=== PATIENT | female | born 1950 | race Two or more races ===

== ENCOUNTER 2023-06-03 07:53 | Outpatient (CLI) | payer OTHER | END 2023-06-03 07:54 | disposition home or self-care (01) | LOC: NUCLEAR 07:53 | PROVIDERS: ATTEND Internal Medicine Hematology & Oncology | DX: C50.811 Malignant neoplasm of overlapping sites of right female breast (principal) | CPT/HCPCS: 78815; A9552 ==

== ENCOUNTER 2023-12-15 11:43 | Inpatient (IN) | payer OTHER ==
[2023-12-15 12:58] LABS: HEMATOCRIT 35.2 % (36.0-45.00); HEMOGLOBIN 11.6 g/dL (12.0-15.00); MEAN CELL VOLUME 85.8 fL (80.00-100.00); MEAN CORPUSCULAR HEMOGLOBIN 28.4 pg (27.00-32.0); MEAN CORPUSCULAR HGB CONC 33.1 g/dl (32.0-36.0); PLATELET COUNT 335 K/uL (150-450)
[2023-12-15 13:06] LABS: ERYTHROCYTE SEDIMENTATION RATE 48 mm/hr
[2023-12-15 13:21] LABS: PH,URINE 5.5 (5.0-8.0); URINE APPEARANCE Cloudy; URINE BACTERIA 844.1 uL (0.0-1933); URINE BILIRRUBIN Negative (NEGATIVE); URINE BLOOD Negative; URINE CAST 5.19 uL (0.0-1.40); URINE COLOR Dark Yellow; URINE EPITHELIAL CELLS 46.9 uL (0.0-38.8); URINE GLUCOSE Negative (NEGATIVE); URINE KETONE Trace (NEGATIVE); URINE LEUKOCYTE Moderate; URINE NITRATE Negative; URINE PROTEIN Negative (NEGATIVE); URINE UROBILINOGEN 0.2 E.U./dl; URINE WBC 93.5 uL (0.0-23.2)
[2023-12-15 13:38] LABS: PARTIAL THROMBOPLASTIN TIME 25.6 SECONDS (22.0-34.0); PROTHROMBIN TIME 10.9 SECONDS (9.0-11.5)
[2023-12-15 13:46] LABS: ALBUMIN 3.8 gm/dL (3.4-5.0); ALKALINE PHOSPHATASE 76 U/L (50-136); ALT/SGPT 12 U/L (12-78); ANION GAP 8 (10.0-20.0); AST/SGOT 19 U/L (15-37); BILIRUBIN TOTAL 0.88 mg/dL (0.3-1.2); BLOOD UREA NITROGEN 19 mg/dL (7-18); BUN CREA RATIO 22 (7.0-25.0); CALCIUM 9.7 mg/dL (8.5-10.1); CARBON DIOXIDE 30 mEq/L (21-32); CHLORIDE 103 mmol/L (98-107); CREATININE SERUM 0.88 mg/dL (0.55-1.02); GFR 62.64; GLOBULINA 4.3 G/DL (2.4-3.5); GLUCOSE FASTING 84 mg/dL (65-100); LDH 195 U/L (84-246); OSMOLALITY SERUM 275 MOSM/KG (275-295); POTASSIUM 4.49 mEq/L (3.5-5.1); SODIUM 137 mmol/L (136-145); TOTAL PROTEIN 8.1 gm/dL (6.4-8.2)
[2023-12-15 13:47] LABS: C-REACTIVE PROTEIN < 0.29 MG/DL (0.00-0.29)
[2023-12-15 13:55] LABS: URINE CRYSTALS MODERATE /HPF
[2023-12-15] MEDS ORDERED: PIPERACILLIN/TAZOBACTAM SODIUM 3.375 GM VIAL IV STA (16:44)
[2023-12-15] MEDS ORDERED: RINGERS SOLUTION,LACTATED 1,000 ML IV SCH (16:45)
[2023-12-15] MEDS ORDERED: PIPERACILLIN/TAZOBACTAM SODIUM 3.375 GM VIAL IV SCH (18:00)
[2023-12-16] MEDS ORDERED: METHYLPREDNISOLONE SOD SUCC 40 MG VIAL IV ONE (22:00)
[2023-12-16] MEDS ORDERED: DIPHENHYDRAMINE HCL 50 MG/ML VIAL 1ML IV ONE (22:00)
[2023-12-17] MEDS ORDERED: LOSARTAN POTASSIUM 50 MG TABLET PO SCH (09:00)
[2023-12-19 07:58] LABS: HEMATOCRIT 34.1 % (36.0-45.00); HEMOGLOBIN 11.2 g/dL (12.0-15.00); MEAN CELL VOLUME 86.4 fL (80.00-100.00); MEAN CORPUSCULAR HEMOGLOBIN 28.4 pg (27.00-32.0); MEAN CORPUSCULAR HGB CONC 32.8 g/dl (32.0-36.0); PLATELET COUNT 299 K/uL (150-450); RED BLOOD COUNT 3.94 M/uL (4.00-6.00); RED CELL DISTRIBUTION WIDTH 15.9 % (11.5-14.5)
[2023-12-19 08:56] LABS: CALCIUM 9.1 mg/dL (8.5-10.1); CREATININE SERUM 0.89 mg/dL (0.55-1.02); GFR 61.83; POTASSIUM 4.15 mEq/L (3.5-5.1)
[2023-12-19 11:35] LABS: ERYTHROCYTE SEDIMENTATION RATE 39 mm/hr
[2023-12-22] MEDS ORDERED: AMOX-CLAV 875-1 EACH PO (18:09)
== END 2023-12-22 21:51 | disposition home or self-care (01) | DRG 580 ==
LOC: MEDJ 11:43
PROVIDERS: ADMIT Internal Medicine Hematology & Oncology; ATTEND Internal Medicine Hematology & Oncology
PROC: 0JD60ZZ Extraction of Chest Subcutaneous Tissue and Fascia, Open Approach (ICD-10-PCS; principal; 2023-12-16)
PROC: BW24YZZ Computerized Tomography (CT Scan) of Chest and Abdomen using Other Contrast (ICD-10-PCS; 2023-12-16)
DX: C50.811 Malignant neoplasm of overlapping sites of right female breast (principal); C78.01 Secondary malignant neoplasm of right lung; E46 Unspecified protein-calorie malnutrition; C79.89 Secondary malignant neoplasm of other specified sites; N61.1 Abscess of the breast and nipple; B96.4 Proteus (mirabilis) (morganii) as the cause of diseases classified elsewhere; B96.89 Other specified bacterial agents as the cause of diseases classified elsewhere; I10 Essential (primary) hypertension
CPT/HCPCS: 240

== ENCOUNTER 2024-03-28 14:09 | Outpatient (CLI) | payer OTHER ==
[~2024-03-28 14:09] MED LIST: AMOX-CLAV 875-1 EACH PO
== END 2024-03-28 14:17 | disposition home or self-care (01) ==
LOC: RAD 14:09
DX: C50.811 Malignant neoplasm of overlapping sites of right female breast (principal)